=== PATIENT | male | born 1985 | race Caucasian/White ===

== ENCOUNTER 2017-01-12 17:25 | Emergency (ER) | payer SELFPAY ==
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
[2017-01-12 17:32] VITALS: BP 143/91
[2017-01-12] MEDS ORDERED: Acetaminophen TAB* 325 MG PO ONE (18:01)
--- NOTE | 2017-01-12 18:05 | RAD ---
INDICATION: Left femoral injury COMPARISON: None TECHNIQUE: AP, lateral, and oblique views were obtained. FINDINGS: The bony structures, joint spaces, and soft tissues are normal for age. IMPRESSION: NEGATIVE EXAMINATION
== END 2017-01-12 18:20 | disposition home or self-care (01) ==
LOC: UCEAST 17:25
DX: S70.12XA Contusion of left thigh, initial encounter (principal); W22.8XXA Striking against or struck by other objects, initial encounter; Y92.9 Unspecified place or not applicable
CPT/HCPCS: 99212; A9270-GY; G0463

== ENCOUNTER 2019-03-16 09:12 | Emergency (ER) | payer BC ==
[2019-03-16] MEDS ORDERED: NS 0.9% 1000 ML** 1,000 ML IV ONE (09:29)
[2019-03-16] MEDS ORDERED: diazePAM INJ* 5 MG/ML 2ML SYRINGE IV ONE (09:38)
[2019-03-16] MEDS ORDERED: Ketorolac INJ* 30 MG/ML 1 ML VIAL IV ONE (09:38)
[2019-03-16 09:49] LABS: ABS Lymphocytes 1.9 10^3/ul (1.0-4.8); ABS Monocytes 0.7 10^3/ul (0-0.8); Eosinophil % 0.5 %; Hematocrit 44 % (42-52); Hemoglobin 15.3 g/dL (14.0-18.0); Lymphocyte % 22.2 %; Mean Corpuscular HGB Conc 35 g/dL (31-36); Mean Corpuscular Hemoglobin 29 pg (27-31); Mean Corpuscular Volume 83 fL (80-94); Nucleated Red Blood Cells % 0.1; Platelet Count 181 10^3/uL (150-450); Red Cell Distribution Width 13 % (10-15); White Blood Count 8.7 10^3/uL (3.5-10.8)
[2019-03-16 09:56] LABS: INR 1.06 (0.82-1.09)
[2019-03-16 10:07] LABS: Albumin 4.7 g/dL (3.2-5.2); Albumin/Globulin Ratio 1.7 (1-3); BUN/Creatinine Ratio 11.2 (8-20); Calcium 9.8 mg/dL (8.6-10.3); EGFR African American 96.9 (>60); EGFR Non-African American 80.1 (>60); Globulin 2.8 g/dL (2-4); Magnesium 2.1 mg/dL (1.9-2.7); Potassium 3.8 mmol/L (3.5-5.0); Total Bilirubin 0.7 mg/dL (0.2-1.0); Total Protein 7.5 g/dL (6.4-8.9)
[2019-03-16 10:26] LABS: TSH (Thyroid Stimulating Horm) 2.09 mcIU/mL (0.34-5.60)
[2019-03-16 11:15] VITALS: BP 128/77
--- NOTE | 2019-03-16 12:12 | ED ---
Upper Extremity Pain - HPI Summary HPI Summary: This patient is a 33-year-old male presenting to the ED with left shoulder pain. On arrival into the ED, the patient states he has a left scapular pain radiating around to the left chest wall and affecting his range of motion to the left arm. He states he has had this in the past, several months ago and was worked up thoroughly for chest pain. All of which was negative. He states due to the concern for chest pain, he was not worked up for his left shoulder pain. 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 Endorses some intermittent numbness and tingling to the L arm. States he does not have a cardiac history and denies any SOB. CP he describes as a radiation of pain from the L scapula. - History of Current Complaint Chief Complaint: EDChestPainROMI Stated Complaint: CHEST PAIN/LEFT ARM AND SHOULDER PAIN PER PT Time Seen by Provider: 03/16/19 09:29 Hx Obtained From: Patient Onset/Duration: Started Hours Ago Timing: Constant Severity Initially: Moderate Severity Currently: Moderate Pain Location: Shoulder Character: Aching Aggravating Factor(s): Movement, Lifting, Flexion, Extension Associated Signs & Symptoms: Negative: Swelling, Redness, Bruising Related History: Dominant Hand Right - Risk Factors Non-Orthopedic Risk Factor: Negative DVT Risk Factors: Negative Septic Arthritis Risk Factor: Negative Compartment Syndrome Risk Factors: Pain - Allergies/Home Medications Allergies/Adverse Reactions: Allergies Allergy/AdvReac Type Severity Reaction Status Date / Time No Known Allergies Allergy Verified 03/16/19 09:23 PMH/Surg Hx/FS Hx/Imm Hx Previously Healthy: Yes Endocrine/Hematology History: Denies: Hx Diabetes, Hx Thyroid Disease Cardiovascular History: Denies: Hx Hypertension Respiratory History: Denies: Hx Asthma, Hx Chronic Obstructive Pulmonary Disease (COPD) GI History: Denies: Hx Ulcer Musculoskeletal History: Denies: Hx Scoliosis Neurological History: Denies: Hx Headaches, Other Neuro Impairments/Disorders - Surgical History Surgery Procedure, Year, and Place: R shoulder dislocation -ligaments "tightened " - Immunization History Hx Pertussis Vaccination: No Immunizations Up to Date: Yes Infectious Disease History: No Infectious Disease History: Denies: Hx Clostridium Difficile, Hx Hepatitis, Hx Human Immunodeficiency Virus (HIV), Hx of Known/Suspected MRSA, Hx Shingles, Hx Tuberculosis, Hx Known/ Suspected VRE, Hx Known/Suspected VRSA, History Other Infectious Disease, Traveled Outside the [place] in Last 30 Days - Family History Known Family History: Positive: None Family History: NON CONTRIBUTORY - Social History Occupation: Employed Full-time Lives: With Family Alcohol Use: Occasionally Hx Substance Use: No Substance Use Type: Reports: None Smoking Status (MU): Never Smoked Tobacco Review of Systems Negative: Fever, Chills, Fatigue, Skin Diaphoresis Negative: Palpitations, Chest Pain Negative: Shortness Of Breath, Cough Genitourinary: Negative Positive: no symptoms reported, see HPI Positive: Arthralgia, Myalgia Skin: Negative Neurological: Negative All Other Systems Reviewed And Are Negative: Yes Physical Exam Triage Information Reviewed: Yes Vital Signs On Initial Exam: Initial Vitals Temp Pulse Resp BP Pulse Ox 97.6 F 54 16 159/71 96 03/16/19 09:19 03/16/19 09:19 03/16/19 09:19 03/16/19 09:19 03/16/19 09:19 Vital Signs Reviewed: Yes Appearance: Positive: Well-Appearing, No Pain Distress Skin: Positive: Warm, Skin Color Reflects Adequate Perfusion Head/Face: Positive: Normal Head/Face Inspection Eyes: Positive: EOMI, [place], Conjunctiva Clear Neck: Positive: Supple, No Lymphadenopathy Respiratory/Lung Sounds: Positive: Clear to Auscultation, Breath Sounds Present Cardiovascular: Positive: RRR, Pulses are Symmetrical in both Upper and Lower Extremities Musculoskeletal: Positive: Pain @ - left shoulder pain with movement Neurological: Positive: Speech Normal Psychiatric: Positive: Affect/Mood Appropriate Procedures - Sedation Patient Received Moderate/Deep Sedation with Procedure: No Diagnostics - Vital Signs Vital Signs Temp Pulse Resp BP Pulse Ox 03/16/19 11:11 98.3 F 51 17 128/77 99 03/16/19 09:19 97.6 F 54 16 159/71 96 - Laboratory Lab Results: Lab Results 03/16/19 03/16/19 03/16/19 Range/Units 09:41 09:41 09:41 WBC 8.7 (3.5-10.8) 10^3/uL RBC 5.30 (4.18-5.48) 10^6 /uL Hgb 15.3 (14.0-18.0) g/dL Hct 44 (42-52) % MCV 83 (80-94) fL MCH 29 (27-31) pg MCHC 35 (31-36) g/dL RDW 13 (10-15) % Plt Count 181 (150-450) 10^3/uL MPV 9.0 (7.4-10.4) fL Neut % (Auto) 68.4 % Lymph % (Auto) 22.2 % Imperial % (Auto) 8.5 % Eos % (Auto) 0.5 % Baso % (Auto) 0.4 % Absolute Neuts (auto) 6.0 (1.5-7.7) 10^3/ul Absolute Lymphs (auto) 1.9 (1.0-4.8) 10^3/ul Absolute Monos (auto) 0.7 (0-0.8) 10^3/ul Absolute Eos (auto) 0.0 (0-0.6) 10^3/ul Absolute Basos (auto) 0.0 (0-0.2) 10^3/ul Absolute Nucleated RBC 0.0 10^3/ul Nucleated RBC % 0.1 INR (Anticoag Therapy) 1.06 (0.82-1.09) Sodium 139 (135-145) mmol/L Potassium 3.8 (3.5-5.0) mmol/L Chloride 105 (101-111) mmol/L Carbon Dioxide 27 (22-32) mmol/L Anion Gap 7 (2-11) mmol/L BUN 12 (6-24) mg/dL Creatinine 1.07 (0.67-1.17) mg/dL Est GFR ( Amer) 96.9 (>60) Est GFR (Non-Af Amer) 80.1 (>60) BUN/Creatinine Ratio 11.2 (8-20) Glucose 101 H (70-100) mg/dL Lactic Acid (0.5-2.0) mmol/L Calcium 9.8 (8.6-10.3) mg/dL Magnesium 2.1 (1.9-2.7) mg/dL Total Bilirubin 0.70 (0.2-1.0) mg/dL AST 17 (13-39) U/L ALT 16 (7-52) U/L Alkaline Phosphatase 81 (34-104) U/L Troponin I 0.00 (<0.04) ng/mL Total Protein 7.5 (6.4-8.9) g/dL Albumin 4.7 (3.2-5.2) g/dL Globulin 2.8 (2-4) g/dL Albumin/Globulin Ratio 1.7 (1-3) TSH 2.09 (0.34-5.60) mcIU/mL 03/16/19 Range/Units 09:41 WBC (3.5-10.8) 10^3/uL RBC (4.18-5.48) 10^6 /uL Hgb (14.0-18.0) g/dL Hct (42-52) % MCV (80-94) fL MCH (27-31) pg MCHC (31-36) g/dL RDW (10-15) % Plt Count (150-450) 10^3/uL MPV (7.4-10.4) fL Neut % (Auto) % Lymph % (Auto) % Imperial % (Auto) % Eos % (Auto) % Baso % (Auto) % Absolute Neuts (auto) (1.5-7.7) 10^3/ul Absolute Lymphs (auto) (1.0-4.8) 10^3/ul Absolute Monos (auto) (0-0.8) 10^3/ul Absolute Eos (auto) (0-0.6) 10^3/ul Absolute Basos (auto) (0-0.2) 10^3/ul Absolute Nucleated RBC 10^3/ul Nucleated RBC % INR (Anticoag Therapy) (0.82-1.09) Sodium (135-145) mmol/L Potassium (3.5-5.0) mmol/L Chloride (101-111) mmol/L Carbon Dioxide (22-32) mmol/L Anion Gap (2-11) mmol/L BUN (6-24) mg/dL Creatinine (0.67-1.17) mg/dL Est GFR ( Amer) (>60) Est GFR (Non-Af Amer) (>60) BUN/Creatinine Ratio (8-20) Glucose (70-100) mg/dL Lactic Acid 0.8 (0.5-2.0) mmol/L Calcium (8.6-10.3) mg/dL Magnesium (1.9-2.7) mg/dL Total Bilirubin (0.2-1.0) mg/dL AST (13-39) U/L ALT (7-52) U/L Alkaline Phosphatase (34-104) U/L Troponin I (<0.04) ng/mL Total Protein (6.4-8.9) g/dL Albumin (3.2-5.2) g/dL Globulin (2-4) g/dL Albumin/Globulin Ratio (1-3) TSH (0.34-5.60) mcIU/mL Result Diagrams: 03/16/19 09:41 03/16/19 09:41 Lab Statement: Any lab studies that have been ordered have been reviewed, and results considered in the medical decision making process. Course/Dx - Course Course Of Treatment: During this course treatment, the patient is evaluated for left scapular pain radiating into the superior left shoulder and left chest wall. He states he's had this in the past and was worked up thoroughly for chest pain due to the chest wall pain radiating from the left scapula. All of these tests were negative as outpatient. He states as his physicians were concerned with his left chest wall pain, vague Rubens his primary complaint of shoulder pain. He states symptoms are worse with movement and better with rest. 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 He is able to have full range of motion, however with pain. Endorses some tingling down the left lower extremity which has been intermittent. Denies any color temperature changes. Denies any injury or trauma to the left shoulder. Chest pain workup today in the ED was negative including a troponin of 0.00 an EKG of normal sinus rhythm. Shoulder x-ray obtained which was negative. On physical examination, patient has full range of motion. All special shoulder tests negative except empty can tests which is positive for superior shoulder pain with internal rotation. Pt given toradol with good relief. Pt Ok for f/u with ortho and will be given note for work. Heart score = 0. Pt dx with shoulder tendinitis. F/u given. - Diagnoses Differential Diagnosis/HQI/PQRI: Positive: Strain, Sprain Provider Diagnoses: Shoulder tendinitis Discharge ED - Sign-Out/Discharge Documenting (check all that apply): Patient Departure - Discharge Plan Condition: Stable Disposition: HOME Prescriptions: Cyclobenzaprine TAB* [Flexeril TAB*] 10 mg PO BID PRN #10 tab MDD 2 PRN Reason: Pain - Mild Ketorolac TAB * [Toradol TAB *] 10 mg PO Q6H #16 tab Patient Education Materials: Rotator Cuff Tendinitis (ED) Forms: *Work Release Referrals: Rolando Fernandes MD [Medical Doctor] - Cuauhtemoc Boss MD [Primary Care Provider] - Additional Instructions: You were seen in the Emergency Department for left shoulder pain/tightness This is likely a tendinitis Xrays and all labs obtained were negative Moist heat as much as possible Toradol four times daily DO NOT TAKE IBUPROFEN OR OTHER NSAIDS WHILE TAKING THIS MEDICATION Flexeril twice daily as needed for muscle relaxation If you develop any worsening or changing symptoms, please return to the ED Please follow up with your primary care provider in the next 2-3 days Follow up with orthopedics if symptoms persist It was a pleasure taking care of you today - Billing Disposition and Condition Condition: STABLE Disposition: Home - Attestation Statements Provider Attestation: I was available for consultation for this patient. I did not evaluate the patient or participate in any medical decision making or disposition decisions unless I am specifically named in the chart as having consulted on the patient. If I have consulted on the patient, please see my own ED note on the patient encounter. Lei Cason MD
== END 2019-03-16 11:15 | disposition home or self-care (01) ==
LOC: ED 09:12
DX: M75.22 Bicipital tendinitis, left shoulder (principal); M25.512 Pain in left shoulder; M77.9 Enthesopathy, unspecified; R07.9 Chest pain, unspecified; R20.0 Anesthesia of skin
CPT/HCPCS: 36415; 71046; 80053; 83605; 83735; 84443; 84484; 85025; 85610; 93005; 96361; 96374; 99282; J1885; J3360

== ENCOUNTER 2019-07-03 08:30 | Emergency (ER) | payer BC ==
[2019-07-03 08:38] VITALS: BP 136/84
--- NOTE | 2019-07-03 08:40 | UC ---
FLU HPI - HPI Summary HPI Summary: 34 y/o male presents to the urgent care c/o fever, LENZ, body aches, loose stools , nausea and dry cough for the past 3 days. Pt reports 3 episodes of loose stools and he has been drinking fluids, also drinking Pedialyte, but has decrease appetite. Fever of 102F the first days, His kids were sick last week w / similar symptoms but he is not sure if it was the flu since they are noiw better. Pt denies travel outside the country in the last month. Pt denies dizziness, vomiting, SOB, chest pain, abdominal pain, neck pain or rash. He has been taking Mucinex PO to alleviate symptoms. - History of Current Complaint Chief Complaint: UCGeneralIllness Stated Complaint: FEVER Time Seen by Provider: 07/03/19 08:34 Hx Obtained From: Patient Onset/Duration: Gradual Onset, Lasting Days - 3 days, Still Present, Worse Since - today Severity Currently: Mild Severity Initially: Moderate Pain Intensity: 5 - body aches and LENZ Pain Scale Used: 0-10 Numeric Associated Signs & Symptoms: Positive: Fever - 102F, Myalgia, Cough - dry, Nasal Congestion - clear, Headache, Diarrhea - loose stools. Negative: Sore Throat, Vomiting Related Hx: Possible Flu/Infectious Exposure - Risk Factors Influenza Risk Factors: Negative - Allergy/Home Medications Allergies/Adverse Reactions: Allergies Allergy/AdvReac Type Severity Reaction Status Date / Time No Known Allergies Allergy Verified 07/03/19 08:38 PMH/Surg Hx/FS Hx/Imm Hx Previously Healthy: Yes - Pt denies - Surgical History Surgical History: Yes Surgery Procedure, Year, and Place: R shoulder dislocation -ligaments "tightened " - Family History Known Family History: Positive: None - Pt denies FMHX Family History: NON CONTRIBUTORY - Social History Occupation: Employed Full-time Lives: With Family Alcohol Use: Occasionally Substance Use Type: None Smoking Status (MU): Never Smoked Tobacco - Immunization History Most Recent Influenza Vaccination: NEVER Most Recent Tetanus Shot: 2011 Review of Systems All Other Systems Reviewed And Are Negative: Yes Constitutional: Positive: Fever, Chills, Fatigue, Other - body aches Skin: Positive: Negative Eyes: Positive: Negative ENT: Positive: Nasal Discharge - clear, Sinus Congestion Respiratory: Positive: Cough - dry cough Cardiovascular: Positive: Negative Gastrointestinal: Positive: Diarrhea - 3 episodes of loose stool Genitourinary: Positive: Negative Motor: Positive: Negative Neurovascular: Positive: Negative Musculoskeletal: Positive: Myalgia Neurological: Positive: Headache Psychological: Positive: Negative Is Patient Immunocompromised?: No Physical Exam - Summary Physical Exam Summary: VITAL SIGNS: Reviewed. GENERAL: Patient is a well developed and nourished male who is sitting comfortably in the examining table. Patient is not in any acute respiratory distress. HEAD AND FACE: No signs of trauma. No ecchymosis, hematomas or skull depressions. No sinus tenderness. EYES: PERRLA, EOMI x 2, No injected conjunctiva, no nystagmus. No photophobia. EARS: Hearing grossly intact. Ear canals and tympanic membranes are within normal limits. MOUTH: Positive pharynx with mild erythema, no exudates, No B/L tonsillar enlargement , no exudate. Uvula in midline. edematous nasal mucosa w/ clear nasal discharge, clear PND NECK: Supple, trachea is midline, Positive anterior cervical lymphadenopathy, no JVD, no carotid bruit, no c-spine tenderness, neck with full ROM. No meningeal signs, no Kernig's or brudzinskis signs. CHEST: Symmetric, no tenderness at palpation LUNGS: Clear to auscultation bilaterally. No wheezing or crackles. CVS: Regular rate and rhythm, S1 and S2 present, no murmurs or gallops appreciated. ABDOMEN: Soft, non-tender. No signs of distention. No rebound no guarding, and no masses palpated. Bowel sounds are normal. EXTREMITIES: FROM in all major joints, no edema, no cyanosis or clubbing. NEURO: Alert and oriented x 3. No acute neurological deficits. Pt follows commands. SKIN: Dry and warm Triage Information Reviewed: Yes Vital Signs: Initial Vital Signs Temp 96.7 F 07/03/19 08:34 Pulse 101 07/03/19 08:34 Resp 19 07/03/19 08:34 BP 136/84 07/03/19 08:34 Pulse Ox 98 07/03/19 08:34 Flu Course/Dx - Course Course Of Treatment: 34 y/o male presents to the urgent care c/o fever, LENZ, body aches, loose stools , nausea and dry cough for the past 3 days. Pt reports 3 episodes of loose stools and he has been drinking fluids, also drinking Pedialyte, but has decrease appetite. Fever of 102F the first days, His kids were sick last week w / similar symptoms but he is not sure if it was the flu since they are noiw better. Pt denies travel outside the country in the last month. Pt denies dizziness, vomiting, SOB, chest pain, abdominal pain, neck pain or rash. He has been taking Mucinex PO to alleviate symptoms. Hx obtained. Pt with URI on examination. Rapid strep ordered, result: negative.Influenza A&B ordered: result: Influenza B positive. Pt given at the clinic Tylenol PO and Famotidine PO to alleviate symptoms by nurse. pt tolerated well medication and felt better. Pt Rx Tamiflu and advised to take Tylenol or ibuprofen PO to alleviate symptoms. Advised on hand washing and wearing a mask to avoid spreading. Pt advised to rest, increase fluid intake, eat well and avoid strenuous exercise. If symptoms do not improve or worsen advised to return to the urgent care or f/u with PCP in 3 days for further evaluation and treatment. Pt understood and agreed w/ plan of care. - Differential Dx/Diagnosis Differential Diagnosis/HQI/PQRI: Bronchitis, Influenza, Pneumonia, Upper Respiratory Infection Provider Diagnosis: Influenza B Discharge ED - Sign-Out/Discharge Documenting (check all that apply): Patient Departure - D/c home All imaging exams completed and their final reports reviewed: No Studies - Discharge Plan Condition: Stable Disposition: LAW ENFORCEMENT/COURT Prescriptions: Oseltamivir CAP* [Tamiflu CAP*] 75 mg PO BID #10 cap Patient Education Materials: Influenza (ED) Forms: *Work Release Referrals: Cuauhtemoc Boss MD [Primary Care Provider] - 3 Days Additional Instructions: 1- Please take the full course of the antiviral to avoid resistance. Encourage hand washing and wear a mask to avoid spreading. 2-Please continue taking Tylenol PO q6-8hrs prn as instructed after meals to alleviate fever, and sore throat. Increase fluid intake, eat well, rest and avoid strenuous exercise 3-If symptoms do not improve or worsen please return to the urgent care or f/u with your PCP in 2 days for further evaluation and treatment. - Billing Disposition and Condition Condition: STABLE Disposition: Law Enforcement/Court
[2019-07-03 08:49] LABS: Influenza B Molecular POSITIVE (Negative)
[2019-07-03] MEDS ORDERED: Famotidine TAB* 20 MG PO ONE (08:49)
[2019-07-03] MEDS ORDERED: Acetaminophen TAB* 325 MG PO ONE (08:49)
== END 2019-07-03 09:17 ==
LOC: UCEAST 08:30
DX: J10.1 Influenza due to other identified influenza virus with other respiratory manifestations (principal); R19.7 Diarrhea, unspecified
CPT/HCPCS: 99212; A9270-GY; G0463